=== PATIENT | male | born 1980 | race Caucasian/White ===

== ENCOUNTER 2017-01-04 20:37 | Emergency (ER) | payer MEDICARE ==
[~2017-01-04] VITALS: Ht 182.9 cm; Wt 93.9 kg
[2017-01-04 20:48] VITALS: BP 147/90; PULSE 109; RESP 16; TEMP 98.7
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
[2017-01-04] MEDS ORDERED: ACETAMINOPHEN/HYDROcodone 325 MG/7.5 MG TAB PO ONE (22:00)
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
[2017-01-04] MEDS ORDERED: CYCL1TAB29 PO (23:10)
[2017-01-04] MEDS ORDERED: IBUP-232 PO (23:10)
[2017-01-04] MEDS ORDERED: HYDR-3533 PO (23:10)
[2017-01-05] MEDS: ACETAMINOPHEN/HYDROcodone 325 MG/5 MG TAB PO ONE ×2 (00:15→00:48)
[2017-01-05 00:56] VITALS: RESP 18
== END 2017-01-05 00:56 | disposition home or self-care (01) ==
LOC: PHEFT 20:37
DX: S52.571A Other intraarticular fracture of lower end of right radius, initial encounter for closed fracture (principal); Z89.612 Acquired absence of left leg above knee; Y04.2XXA Assault by strike against or bumped into by another person, initial encounter; Y93.9 Activity, unspecified; Y92.9 Unspecified place or not applicable; Y99.9 Unspecified external cause status; M79.1 Myalgia
CPT/HCPCS: 29515; 70450; 70486; 72220; 73110; 73130